=== PATIENT | male | born 1955 | race Caucasian/White ===

== ENCOUNTER 2019-04-21 13:15 | Emergency (ER) | payer OTHER ==
[2019-04-21] MEDS ORDERED: HYDROCODONE/APAP 10/325 TAB ONE (13:47)
[2019-04-21] MEDS ORDERED: DOXYCYCLINE 100 MG CAP PO ONE (13:48)
[2019-04-21] MEDS ORDERED: TETANUS & DIPHTHERIA TOX,ADULT 0.5 ML VIAL ONE (13:48)
[2019-04-21] MEDS ORDERED: LIDOCAINE 1% MPF 5 ML VIAL ONE (13:59)
[2019-04-21] MEDS ORDERED: BUPIVACAINE 0.5% PF 10 ML VIAL ONE (13:59)
--- NOTE | 2019-04-21 14:00 | RAD REPORT ---
EXAM DESCRIPTION: RAD -Hand Left 3 View - 04/21/2019 1:52 pm CLINICAL HISTORY: Left hand pain status post injury FINDINGS: A fracture involves the terminal tuft of the third digit. No dislocation
--- NOTE | 2019-04-21 15:17 | EDPHYS ---
Physician Documentation [facility] Name: Kushal Rosa III Age: 63 yrs Sex: Male : 1955 Arrival Date: 04/21/2019 Time: 13:17 Bed 5 Private MD: ED Physician Sloan Gant HPI: 04/21 14:46 This 63 yrs old Male presents to ER via Ambulatory with complaints of Finger kb Injury. 14:46 The patient or guardian reports injury, pain, partial amputation. The complaints affect kb the dorsal aspect of distal phalanx of left middle finger. Context: The problem was sustained outdoors, resulted from finger getting caught of fix box . 15:00 Onset: The symptoms/episode began/occurred just prior to arrival. Modifying factors: kb The symptoms are alleviated by nothing, the symptoms are aggravated by nothing. Associated signs and symptoms: The patient has no apparent associated signs or symptoms. Severity of symptoms: At their worst the symptoms were moderate, in the emergency department the symptoms are unchanged. The patient has not experienced similar symptoms in the past. The patient has not recently seen a physician. Pt got his left middle finger degloved and partially amputated by a fish box. Historical: - Allergies: 13:41 No Known Allergies; sg - Home Meds: 13:41 None [Active]; sg - PMHx: 13:41 None; sg - PSHx: 13:41 None; sg - Immunization history:: Adult Immunizations not up to date, Last tetanus immunization: > 10 years ago. - Social history:: Smoking status: Patient/guardian denies using tobacco. - Ebola Screening: : Patient negative for fever greater than or equal to 101.5 degrees Fahrenheit, and additional compatible Ebola Virus Disease symptoms Patient denies exposure to infectious person Patient denies travel to an Ebola-affected area in the 21 days before illness onset No symptoms or risks identified at this time. ROS: 14:04 Constitutional: Negative for fever, chills, and weight loss, Cardiovascular: Negative kb for chest pain, palpitations, and edema, Respiratory: Negative for shortness of breath, cough, wheezing, and pleuritic chest pain, Abdomen/GI: Negative for abdominal pain, nausea, vomiting, diarrhea, and constipation, Back: Negative for injury and pain, : Negative for injury, bleeding, discharge, and swelling, Neuro: Negative for headache, weakness, numbness, tingling, and seizure. 14:04 MS/extremity: Positive for injury or acute deformity, laceration, pain, of the dorsal aspect of distal phalanx of left middle finger. Exam: 14:04 Constitutional: This is a well developed, well nourished patient who is awake, alert, kb and in no acute distress. Head/Face: Normocephalic, atraumatic. Chest/axilla: Normal chest wall appearance and motion. Nontender with no deformity. No lesions are appreciated. Cardiovascular: Regular rate and rhythm with a normal S1 and S2. No gallops, murmurs, or rubs. Normal PMI, no JVD. No pulse deficits. Respiratory: Lungs have equal breath sounds bilaterally, clear to auscultation and percussion. No rales, rhonchi or wheezes noted. No increased work of breathing, no retractions or nasal flaring. Abdomen/GI: Soft, non-tender, with normal bowel sounds. No distension or tympany. No guarding or rebound. No evidence of tenderness throughout. Neuro: Awake and alert, GCS 15, oriented to person, place, time, and situation. Cranial nerves II-XII grossly intact. Motor strength 5/5 in all extremities. Sensory grossly intact. Cerebellar exam normal. Normal gait. 14:04 Musculoskeletal/extremity: Extremities: grossly normal except: noted in the dorsal aspect of distal phalanx of left middle finger: laceration, pain, degloved finger tip, ROM: intact in all extremities, Circulation is intact in all extremities. Sensation intact. Vital Signs: 13:21 BP 155 / 98; Pulse 71; Resp 18; Temp 97.2; Pulse Ox 97% on R/A; Pain 7/10; sg 14:21 BP 145 / 90; Pulse 77; Resp 18; Temp 97.2; Pulse Ox 97% on R/A; sg 15:21 BP 142 / 82; Pulse 77; Resp 16; Pulse Ox 96% on R/A; sg Sharon Coma Score: 13:22 Eye Response: spontaneous(4). Verbal Response: oriented(5). Motor Response: obeys sg commands(6). Total: 15. 14:22 Eye Response: spontaneous(4). Verbal Response: oriented(5). Motor Response: obeys sg commands(6). Total: 15. Trauma Score (Adult): 13:22 Eye Response: spontaneous(1); Verbal Response: oriented(1); Motor Response: obeys sg commands(2); Systolic BP: > 89 mm Hg(4); Respiratory Rate: 10 to 29 per min(4); Sharon Score: 15; Trauma Score: 12 14:22 Eye Response: spontaneous(1); Verbal Response: oriented(1); Motor Response: obeys sg commands(2); Systolic BP: > 89 mm Hg(4); Respiratory Rate: 10 to 29 per min(4); Sharon Score: 15; Trauma Score: 12 Procedures: 13:57 Nerve block: (digital) of dorsal aspect of proximal phalanx of left middle finger and kb palmar aspect of proximal phalanx of left middle finger Medication: Lidocaine 1% without epinephrine Marcaine 0.5%, Amount: 6 mls were injected, Effect: the patient has resolution of the pain, Set up for procedure. Performed by Cristal WILKS Patient tolerated well. MDM: 13:25 Patient medically screened. kb 14:04 Data reviewed: vital signs, nurses notes. Data interpreted: Pulse oximetry: on room air kb is 97 %. Interpretation: normal. 14:40 ED course: Discussed rad findings with pt. and need for transfer for hand specialist. kb Verbal understanding received. Pt in agreement with plan of care. Pt would like his brother to take him POV instead of in ambulance. . 15:01 Counseling: I had a detailed discussion with the patient and/or guardian regarding: the kb historical points, exam findings, and any diagnostic results supporting the discharge/admit diagnosis, lab results, radiology results, the need for outpatient follow up, a hand specialist, to return to the emergency department if symptoms worsen or persist or if there are any questions or concerns that arise at home. ED course: Discussed pt condition and diagnostics with Dr Johnson (hand surgeon at [facility] Dr Johnson recommended cleaning wound, dressing with xeroform gauze and having pt do dressing changes every other day. Does not think pt needs to be transferred at this time. Will see pt in office on Tuesday. . 15:22 ED course: Pt instructed on dressing changes. Given xeroform and hibiclense for kb cleaning and dressing at home. Given Dr Johnson' name, number and address for follow up. Dr Johnson will see pt on Tuesday in office. 04/21 13:24 Order name: Hand Left 3 View XRAY; Complete Time: 14:02 kb Administered Medications: 13:38 Drug: Doxycycline 100 mg Route: PO; sg 13:38 Drug: Tetanus-Diphtheria Toxoid Adult 0.5 ml {Pelt Grader: [employer]. Exp: sg 01/13/2021. Lot #: [id number]. } Route: IM; Site: left deltoid; 13:39 Drug: [place] 10 mg-325 mg 1 tabs Route: PO; sg 13:48 Drug: Marcaine (0.5 %) 1 vials {Note: given to Cristal MANAGER GAS.} Volume: 10 ml; Route: sv Infiltration; 13:48 Drug: Lidocaine (1 %) 1 vials {Note: given to Cristal MANAGER GAS.} Volume: 5 ml; Route: sv Infiltration; 15:24 Drug: KeFLEX 500 mg Route: PO; sg Disposition: 16:53 Co-signature as Attending Physician, Sloan Gant MD. rn Disposition: 04/21/19 15:16 Discharged to Home. Impression: Open fracture of tuft of left middle finger, Amputation of distal tip of left middle finger. - Condition is Stable. - Discharge Instructions: Traumatic Finger Amputation, Finger Fracture, [id number]. - Prescriptions for Keflex 500 mg Oral Capsule - take 1 capsule by ORAL route every 8 hours for 10 days; 30 capsule. Tylenol- Codeine #3 300-30 mg Oral Tablet - take 2 tablets by ORAL route every 6 hours As needed; 20 tablet. Doxycycline Hyclate 100 mg Oral Tablet - take 1 tablet by ORAL route every 12 hours; 20 tablet. - Medication Reconciliation Form, Thank You Letter, Antibiotic Education, Prescription Opioid Use, Work release form form. - Follow up: Emergency Department; When: As needed; Reason: Worsening of condition. Follow up: Private Physician; When: 2 - 3 days; Reason: Recheck today's complaints, Continuance of care, Re-evaluation by your physician. - Notes: Follow up with Dr Johnson Pl[facility] [address] [place] [address] [phone] [address] Johnson said he can see you in office on Wednesday Signatures: Dispatcher [employer] EDMS Cristal Lopez, DIE SET UP WORKER-C DIE SET UP WORKER-Ckb Azalia Tan, RN RN Alvaro Sethi, MARIELA RN Sloan Vann MD MD barn hand: (The following items were deleted from the chart) 14:47 14:46 Trauma demographics: County: The injury occurred in [facility] 15:39 15:16 04/21/2019 15:16 Discharged to Home. Impression: Open fracture of tuft of left sg middle finger; Amputation of distal tip of left middle finger. Condition is Stable. Forms are Medication Reconciliation Form, Thank You Letter, Antibiotic Education, Prescription Opioid Use. Follow up: Emergency Department; When: As needed; Reason: Worsening of condition. Follow up: Private Physician; When: 2 - 3 days; Reason: Recheck today's complaints, Continuance of care, Re-evaluation by your physician.
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
[2019-04-21] MEDS ORDERED: levETIRAcetam 500 MG TAB ONE (15:49)
[2019-04-21] MEDS ORDERED: CEPHALEXIN 250 MG CAP ONE (15:50)
== END 2019-04-21 15:39 | disposition home or self-care (01) ==
LOC: ER 13:15
DX: S62.603B Fracture of unspecified phalanx of left middle finger, initial encounter for open fracture (principal); S68.123A Partial traumatic metacarpophalangeal amputation of left middle finger, initial encounter; W23.0XXA Caught, crushed, jammed, or pinched between moving objects, initial encounter; Z23 Encounter for immunization
CPT/HCPCS: 64450; 90471; 90714; 99284